=== PATIENT | female | born 1970 | race Caucasian/White ===

== ENCOUNTER 2024-01-29 19:18 | Emergency (ER) | payer SELFPAY ==
[2024-01-29 19:19] VITALS: BP 195/125; PULSE 76; RESP 16; TEMP 36.6; O2SAT 97
[2024-01-29] MEDS: Lidocaine 2% Multi-Dose 50 ML VIAL (19:45)
--- NOTE | 2024-01-29 20:03 | ED.GENADUL_ITS ---
Discharge Plan Disposition Patient Disposition: Home Condition: Stable Discharge Details Clinical Impression: Nailbed laceration, finger Primary Care Provider: Drea Rodriguez ED Provider: Cassia Rai Home Meds and New Rx's Prescriptions: No Action No Known Home Meds Discharge Instructions Instructions: Wound Care ED Additional Instructions: You were seen in the emergency department today for a finger laceration, and you cut off a piece of your fingernail and damaged the nailbed underneath. 3 dissolvable stitches were placed in your nailbed, and the remainder of the wound was dressed underneath that hemostatic dressing, which should dissolve. Tomorrow you can change the dressing, and put the petroleum nonadhesive dressing on that I gave you. You can use Tylenol and ibuprofen as needed for pain, continue to keep the area clean and dry, and use antibiotic ointment as needed. Thank you for allowing us to be part of your care. Stand Alone Forms: Work Release HPI General Mode of arrival: ambulatory . Date/Time Provider Initiated Documentation: 01/29/24 19:28 . Limitations to Documentation: no limitations . Information obtained by: patient, family and old records reviewed . HPI Narrative: HPI: This is a 53-year-old female patient presenting for evaluation of finger laceration. The patient was washing dishes this evening, and did not realize that there was a mandolin in the sink, and cut her finger and fingernail on the blade. This was an isolated injury and the patient immediately put direct pressure and a bandage on it. She is up-to-date on her tetanus vaccine, and states that she was driven to the hospital without incident. This incident occurred immediately prior to presentation to care. She does endorse having a few alcoholic beverages this evening, is a daily drinker but does not have concern for excessive alcohol intake today and is not experiencing alcohol withdrawal syndrome. She does not have any history of bleeding disorders nor does she take blood thinning medications. Exam: Gen: Awake and alert, in no apparent distress HEENT: Non-icteric sclera Neck: Supple Lungs: No apparent respiratory distress, normal respiratory effort. CV: Appears well perfused Abdomen: Non-distended MSK: Moves 4 extremities without apparent limitation in ROM Skin: Visualized skin without rashes, cyanosis. The patient's right second digit fingernail has been avulsed in a V like formation without disruption of the eponychial fold or paronychium. The nailbed has 3 very tiny lacerations as well as diffuse punctate capillary bleeding. Neuro: Normal Gait, no obvious focal deficits or facial asymmetry. Speaks in full, clear sentences. Psych: Appropriate for situation. MDM: This is a 53-year-old female patient presenting for evaluation of finger laceration. Laceration, abrasion, nailbed injury certainly considered. Mechanism is not consistent with fracture or dislocation. The fingernail itself is partially missing, but the nail fold is not involved and does not require revision. No evidence on history or physical for coagulopathy. ED Course: The wound was thoroughly cleansed and a finger tourniquet was placed to facilitate visualization. 3 absorbable sutures were placed in the nailbed as noted below, and there was some ongoing oozing after release of the tourniquet. For this reason I dressed the wound with Surgifoam. I instructed the patient to dress the wound with a nonadherent dressing tomorrow, and provided her with a Vaseline gauze. I discussed wound care including topical antibiotics, clean dressings, and monitoring for infection. She does not require empiric antibiosis nor tetanus booster today. I referred the patient for establishment of primary care. Cassia Rai MD Related Data Home Medications ?Medication ?Instructions ?Recorded ?Confirmed Unknown [No Known Home Meds] 01/29/24 01/29/24 Allergies Allergy/AdvReac Type Severity Reaction Status Date / Time naproxen Allergy Severe Hives Verified 01/29/24 19:23 General Stated Complaint: Laceration PRINCE: 4 Course Vital Signs Vital signs: Vital Signs Temperature 36.6 C 01/29/24 19:19 Pulse 76 01/29/24 19:19 Respiratory Rate 16 01/29/24 19:19 Blood Pressure 195/125 H 01/29/24 19:19 Pulse Oximetry 97 01/29/24 19:19 Temperature 36.6 C 01/29/24 19:19 Temperature Source Oral 01/29/24 19:19 Pulse 76 01/29/24 19:19 Respiratory Rate 16 01/29/24 19:19 Respiratory Effort Normal, Non-Labored 01/29/24 19:24 Blood Pressure 195/125 H 01/29/24 19:19 Blood Pressure Position Sitting 01/29/24 19:19 Pulse Oximetry 97 01/29/24 19:19 Oxygen Delivery Method Room Air 01/29/24 19:19 Oxygen Flow Rate 0 01/29/24 19:19 Pain Level 2 01/29/24 19:25 Procedures Laceration Laceration 1: Site: hand (Nailbed of right index finger) Side (If applicable): right Size (cm): 0.1 Description: other (The patient has 3 tiny areas of laceration measuring less than 1 mm to the nailbed, with diffuse oozing of blood throughout the nailbed) Depth: simple, single layer Local anesthetic: Lidocaine 2% Amount of anesthesia used (mL): 0.1 Subcutaneous layer closed with: chromic gut Size: 5-0 Number of sutures: 3 Technique: simple, interrupted (Following suturing, the wound bed was dressed using Surgifoam for continued capillary oozing) Medical Decision Making Quality:SDOH Health Related Social Needs: No Data to Display PFSH All Active Problems (Updated 01/29/24 @ 20:05 by Cassia Rai MD) Nailbed laceration, finger (Acute) Social History (System 11/29/22 @ 07:40 by Jaja Puente) Smoking/Tobacco Use Status: Current every day Tobacco Type: cigarettes Smoking risk assessment performed?: Yes Alcohol Intake: current Alcohol Intake frequency: 3 or more drinks per day Alcohol type: beer Drug use: Daily Substance use type: marijuana
[2024-01-29] MEDS: Gelatin SPONGE 12-7 MM PKT 1 EACH TP (20:11)
--- OUTSIDE RECORDS SUMMARY | 2024-01-29 20:13 | XMS_ITS | Referral Summary ---
Author Organization [facility] Address [address] [place] [address] Care Team Providers Care Customer Retention Representative Name Role Phone Drea Rodriguez MD Primary Care Provider [phone] Social History Tobacco Use Types Packs/Day Years Used Date Smoking Tobacco: Never Assessed Comments Unknown Sex and Gender Information Value Date Recorded Sex Assigned at Not on file Legal Sex Female 18:23 EST Gender Identity Not on file Sexual Orientation Not on file Plan of Treatment Not on file Care Teams Customer Retention Representative Relationship Specialty Start Date End Date Drea Rodriguez MD [address] [place] [phone] PCP - General 12/21/14
--- OUTSIDE RECORDS SUMMARY | 2024-01-29 20:13 | XMS_ITS | Clinical Summary ---
Author Organization [facility] Address [address] [place] [address] Care Team Providers Care Social Media Marketing Analyst Name Role Phone Drea Rodriguez MD Primary Care Provider [phone] Social History Tobacco Use Types Packs/Day Years Used Date Smoking Tobacco: Never Assessed Comments Unknown Sex and Gender Information Value Date Recorded Sex Assigned at Not on file Legal Sex Female 18:23 EST Gender Identity Not on file Sexual Orientation Not on file Plan of Treatment Health Maintenance Due Date Last Done Comments Hepatitis C Screen 1970 Hepatitis B Vaccine (1 of 3 - 19+ 3-dose series) 04/22 COVID-19 Vaccine ( season) 2023 Care Teams Social Media Marketing Analyst Relationship Specialty Start Date End Date Drea Rodriguez MD [address] [place] [phone] PCP - General 12/21/14
--- OUTSIDE RECORDS SUMMARY | 2024-01-29 20:13 | XMS_ITS | Encounter Summary ---
Author Organization [facility] Address [address] [place] [address] Care Team Providers Care Mems Integration Engineer Name Role Phone Unavailable Primary Care Provider Unavailabl e Encounter Details Date Type Department Care Team (Late st Contact Info) Description 07/09/2003 Results Only [facility] - Map conversion [address] [place] [address] Drea Chatterjee MD [address] [place] [address] Social History Tobacco Use Types Packs/Day Years Used Date Smoking Tobacco: Never Assessed Comments Unknown Sex and Gender Information Value Date Recorded Sex Assigned at Not on file Legal Sex Female 18:23 EST Gender Identity Not on file Sexual Orientation Not on file documented as of this encounter Plan of Treatment Not on file documented as of this encounter Procedures Procedure Name Priority Date/Time Associated Diagnosis Comments CYTOPATHOLOGY Routine 07/09/2003 0:00 EDT documented in this encounter Results * CYTOPATHOLOGY (07/09/2003 0:00 EDT) Pathology Report: CYTOPATHOLOGY REPORT Reports generated via electronic interface contain original data; however they are lacking the format of the original report. Caution should be taken when reading/interpreti ng unformatted reports. Name: ? KAMILLA BENITES ? Accession #: ? [id number] : ? 1970 (Age: 33) ??F ?Collect Date: ? 07/09/2003 Location: ? [facility] ? Receive Date: ? 07/11/2003 Provider: ?DREA CHATTERJEE MD Copy to: ? Specimen/Source: ?ThinPrep Pap Test, Cervix/Endocervix Last Menstrual Period: ? 06/16 Menstrual/Pregnanc y Status: ? Post Other: ? HPVA - HPV testing requested if ASC-US on the current ThinPrep Pap test. ? SPECIMEN ADEQUACY ? Satisfactory for Evaluation - transformation zone component present GENERAL CATEGORIZATION ? Negative for Intraepithelial Lesion or Malignancy ? Document reviewed and electronically signed by: ? HEIDY Sanford(ASCP) ? Report Date: ??07/17/2003 08:36 End of Report [facility] 07/09/2003 07/11/2003 us Drea Chatterjee MD PATHOLOGY ORDERABLES Final Resul t [facility] [address] [place] [address] documented in this encounter Visit Diagnoses Not on filedocumented in this encounter
--- OUTSIDE RECORDS SUMMARY | 2024-01-29 20:13 | XMS_ITS | Encounter Summary ---
Author Organization [facility] Address [address] [place] [address] Care Team Providers Care Shield Runner Name Role Phone Unavailable Primary Care Provider Unavailabl e Encounter Details Date Type Department Care Team (Late st Contact Info) Description 04/30/2003 Results Only [facility] [place] conversion [address] [place] [address] Elias Zepeda MD [address] [place] [address] Social History Tobacco Use Types Packs/Day Years [...] Procedure Name Priority Date/Time Associated Diagnosis Comments SURGICAL PATHOLOGY Routine 04/30/2003 0:00 EST documented in this encounter Results * SURGICAL PATHOLOGY (04/30/2003 0:00 EST) Pathology Report: SURGICAL PATHOLOGY REPORT Reports generated via electronic interface contain original data; however they are lacking the format of the original report. Caution should be taken when reading/interpreti ng unformatted reports. Name: ? KAMILLA BENITES ? Accession #: ? [id number] ? : ? 1970 (Age: 33) ??F ? Collect Date: ? 04/30/2003 ? Location: ? [facility] ? Receive Date: ? 04/30/2003 ? Provider: ELIAS ZEPEDA MD Copy to: SEKOU CHATTERJEE MD ? Final Pathologic Diagnosis: A. ?Fallopian tube, right, tubal ligation: 1. ?Full cross section of fallopian tube with no pathologic features. B. ?Fallopian tube, left, tubal ligation. 1. ?Full cross section of fallopian tube with no pathologic features. Document reviewed and electronically signed by: Myles Munoz MD Report ??Date: 05/02/2003 15:56 By the signature above, the attending physician certifies that he/she has personally conducted a gross and/or microscopic examination of the described specimens and rendered or confirmed the above diagnosis. Specimen(s) Received: A. ?Right tube (#1) B. ?Left tube (#2) Clinical History: ? Multiparity Gross Description: ? Received in formalin labelled Benites and right tube is a olson-pink, tubular, 1.3 cm in length, 0.5 cm in diameter soft tissue surfaced by a olson, smooth to wrinkled serosa. ??Upon sectioning, the cut surfaces are olson-white with a central pinpoint lumen. ??Two fundraising sale representative sections are submitted as (A). Received in formalin labelled Benites and left tube is a olson-pink, tubular, 1.2 cm in length, 0.4 cm in diameter soft tissue surfaced by a olson, glistening serosa. ??Upon sectioning, the cut surfaces are olson-white with a central pinpoint lumen. ??No discrete lesions are identified. ?? Two fundraising sale representative sections are submitted as (B). ??(Oksana Kenney/prisca End of Report [facility] 04/30/2003 04/30/2003 15: 28 EST us Elias Zepeda MD PATHOLOGY ORDERABLES Final Resul t [facility] [address] [place] [address] documented in this encounter Visit Diagnoses Not on filedocumented in this encounter
--- OUTSIDE RECORDS SUMMARY | 2024-01-29 20:13 | XMS_ITS | Encounter Summary ---
Author Organization [facility] Address [address] [place] [address] Care Team Providers Care Adult Basic Education Instructor Name Role Phone Unavailable Primary Care Provider Unavailabl e Encounter Details Date Type Department Care Team (Late st Contact Info) Description 09/20/2002 Results Only [facility] - [place] conversion [address] [place] [address] Sekou Anderson MD [address] [place] [address] Social History Tobacco Use Types Packs/Day Years [...] Priority Date/Time Associated Diagnosis Comments CYTOPATHOLOGY Routine 09/20/2002 0:00 EDT documented in this encounter Results * CYTOPATHOLOGY (09/20/2002 0:00 EDT) Pathology Report: CYTOPATHOLOGY REPORT Reports generated via electronic interface contain original data; however they are lacking the format of the original report. Caution should be taken when reading/interpreti ng unformatted reports. Name: ? KAMILLA BENITES ? Accession #: ? [id number] : ? 1970 (Age: 32) ??F ?Collect Date: ? 09/20/2002 Location: ? [facility] ? Receive Date: ? 09/24/2002 Provider: ?SEKOU ANDERSON MD Copy to: ? Specimen/Source: ?ThinPrep Pap Test, Cervix/Endocervix Last Menstrual Period: ? 07/14/02 Other: ? HPVA - HPV testing requested if ASC-US on the current ThinPrep Pap test. ? SPECIMEN ADEQUACY ? Satisfactory for Evaluation - transformation zone component present GENERAL CATEGORIZATION ? Negative for Intraepithelial Lesion or Malignancy ? Document reviewed and electronically signed by: ? Winifred Good, [place](ASCP) ? Report Date: ??09/27/2002 08:29 End of Report [facility] 09/20/2002 09/24/2002 us Sekou Anderson MD PATHOLOGY ORDERABLES Final Resul t [facility] [address] [place] [address] documented in this encounter Visit Diagnoses Not on filedocumented in this encounter
--- OUTSIDE RECORDS SUMMARY | 2024-01-29 20:13 | XMS_ITS | Encounter Summary ---
Author Organization [facility] Address [address] [place] [address] Care Team Providers Care Investigations Manager Name Role Phone Unavailable Primary Care Provider Unavailabl e Encounter Details Date Type Department Care Team (Late st Contact Info) Description 03/16/[address] [facility] conversion [address] [place] [address] Drea Chatterjee MD [address] [place] [address] Social History Tobacco Use Types [...] Priority Date/Time Associated Diagnosis Comments CYTOPATHOLOGY Routine 03/16/1999 11:25 EST documented in this encounter Results * CYTOPATHOLOGY (03/16/1999 11:25 EST) Pathology Report: CYTOPATHOLOGY REPORT Reports generated via electronic interface contain original data; however they are lacking the format of the original report. Caution should be taken when reading/interpreti ng unformatted reports. Name: ? KAMILLA BENITES ? Accession #: ? [id number] : ? 1970 (Age: 28) ??F ?Collect Date: ? 03/16/1999 Location: ?Receive Date: ? 03/16/1999 Provider: ?DREA CHATTERJEE MD Copy to: ?DREA CHATTERJEE MD ? Specimen/Source: ?Pap Smear (One Slide) Last Menstrual Period: ? GYNECOLOGIC ??CYTOPATHOLOGY ??REPORT Name: KAMILLA BENITES ? [facility] : 1970 ?? 28Y F ?Client ID: [id number] SS#: [id number] ? Clinician: DREA CHATTERJEE MD ?? Location: [facility] ??Copy to: ?? Specimen: ?Pap Smear (One Slide) ? Source: Cervix/Endocervix ?Collected: 03/12/99 ? Received: 03/16/1999 ?LMP: ?Hormone Therapy: No ? : No ? Radiation Therapy: No ?? Post : Yes ? Chemotherapy: No ?IUD: No ? Prev Abnormal Pap: No ?? Clinical Hx: ?(Blank lucas indicate information not provided on requisition) SPECIMEN ADEQUACY: ? Satisfactory But Limited By ? Scant Squamous Epithelial Component ?? GENERAL CATEGORIZATION: ? WITHIN NORMAL LIMITS ? Reviewed And Electronically Signed By: ? Anabella Dunn, CT(ASCP) ? Report Date: ?? 03/16/1999 [employer] Archived Tests - Final Diagnosis Text Field: Clinical History : ? Document reviewed and electronically signed by: ? Conversion ? Report Date: ??03/16/1999 00:00 End of Report [facility] 03/16/1999 11:2 5 EST 03/16/1999 11:26 EST us Drea Chatterjee MD PATHOLOGY ORDERABLES Final Resul t [facility] [address] [place] [address] documented in this encounter Visit Diagnoses Not on filedocumented in this encounter
--- OUTSIDE RECORDS SUMMARY | 2024-01-29 20:13 | XMS_ITS | Encounter Summary ---
Author Organization [facility] Address [address] [place] [address] Care Team Providers Care Patch Driller Name Role Phone Unavailable Primary Care Provider Unavailabl e Encounter Details Date Type Department Care Team (Late st Contact Info) Description 03/08/2000 Results Only [facility] - [place] conversion [address] [place] [address] Sekou Anderson MD [address] [place] [address] Social History Tobacco Use Types [...] Priority Date/Time Associated Diagnosis Comments CYTOPATHOLOGY Routine 03/08/2000 0:00 EST documented in this encounter Results * CYTOPATHOLOGY (03/08/2000 0:00 EST) Pathology Report: CYTOPATHOLOGY REPORT Reports generated via electronic interface contain original data; however they are lacking the format of the original report. Caution should be taken when reading/interpreti ng unformatted reports. Name: ? KAMILLA BENITES ? Accession #: ? [id number] : ? 1970 (Age: 29) ??F ?Collect Date: ? 03/08/2000 Location: ? [facility] ? Receive Date: ? 03/10/2000 Provider: ?SEKOU ANDERSON MD Copy to: ? Specimen/Source: ?ThinPrep Pap Test, Cervix/Endocervix Last Menstrual Period: ? 02/04/00 Hormonal/Contracep tive Status: ? Depo-Provera ? SPECIMEN ADEQUACY ? Satisfactory for evaluation but limited by scant squamous epithelial component secondary to excessive blood. GENERAL CATEGORIZATION ? Within Normal Limits ? Document reviewed and electronically signed by: ? HEIDY Fisher(ASCP) ? Report Date: ??03/14/2000 09:41 End of Report [facility] 03/08/2000 03/10/2000 us Sekou Anderson MD PATHOLOGY ORDERABLES Final Resul t [facility] [address] [place] [address] documented in this encounter Visit Diagnoses Not on filedocumented in this encounter
--- OUTSIDE RECORDS SUMMARY | 2024-01-29 20:13 | XMS_ITS | Encounter Summary ---
Author Organization [facility] Address [address] [place] [address] Care Team Providers Care Personnel Administrator Name Role Phone Unavailable Primary Care Provider Unavailabl e Encounter Details Date Type Department Care Team (Late st Contact Info) Description 03/01/2002 Results Only [facility] - [place] conversion [address] [place] [address] Paz Sheldon NP [address] [facility] [address] [place] [address] Social History Tobacco Use Types [...] Priority Date/Time Associated Diagnosis Comments CYTOPATHOLOGY Routine 03/01/2002 0:00 EST documented in this encounter Results * CYTOPATHOLOGY (03/01/2002 0:00 EST) Pathology Report: CYTOPATHOLOGY REPORT Reports generated via electronic interface contain original data; however they are lacking the format of the original report. Caution should be taken when reading/interpreti ng unformatted reports. Name: ? KAMILLA BENITES ? Accession #: ? [id number] : ? 1970 (Age: 31) ??F ?Collect Date: ? 03/01/2002 Location: ? [facility] ? Receive Date: ? 03/05/2002 Provider: ?PAZ SHELDON MANAGER IN TRAINING Copy to: ? Specimen/Source: ?ThinPrep Pap Test, Cervix/Endocervix Last Menstrual Period: ? 02/07/02 Hormonal/Contracep tive Status: ? Yes: Ortho cyclen Other: ? HPVA - HPV testing requested if ASC-US on the current ThinPrep Pap test. ? SPECIMEN ADEQUACY ? Satisfactory for Evaluation - transformation zone component present - scant squamous epithelial component secondary to excessive blood GENERAL CATEGORIZATION ? Negative for Intraepithelial Lesion or Malignancy ? Document reviewed and electronically signed by: ? HEIDY Sanford(ASCP) ? Report Date: ??03/06/2002 13:23 End of Report [facility] 03/01/2002 03/05/2002 us Paz Sheldon NP PATHOLOGY ORDERABLES Final R esult [facility] [address] [place] [address] documented in this encounter Visit Diagnoses Not on filedocumented in this encounter
== END 2024-01-29 20:12 | disposition home or self-care (01) ==
LOC: ER 20:12
PROVIDERS: Emergency Provider Emergency Medicine; PCP Family Medicine
DX: S61.310A Laceration without foreign body of right index finger with damage to nail, initial encounter (principal); F17.210 Nicotine dependence, cigarettes, uncomplicated; W26.8XXA Contact with other sharp object(s), not elsewhere classified, initial encounter; Y93.G1 Activity, food preparation and clean up; Y92.010 Kitchen of single-family (private) house as the place of occurrence of the external cause
CPT/HCPCS: 12001; 99283; J2003